=== PATIENT | male | born 1960 | race Caucasian/White ===

== ENCOUNTER 2016-12-02 15:44 | Emergency (ER) | payer OTHER ==
[2016-12-02] MEDS ORDERED: Nitroglycerin 2% Oint 1 GM UD Packet TOP ONE (15:51)
[2016-12-02] MEDS ORDERED: Ketorolac 30 MG/ML SDV IVPUSH ONE (15:51)
[2016-12-02] MEDS ORDERED: Alum Hydrox/Mag Hydrox/Simeth 15 ML, Metoclopramide 5 MG, Lidocaine 2% 5 ML PO ONE ×3 (15:51)
[2016-12-02] MEDS ORDERED: Famotidine 20 MG/2 ML SDV IVPUSH ONE (15:51)
[2016-12-02] MEDS ORDERED: Aspirin 81 MG Tab.Chew PO ONE (15:51)
--- NOTE | 2016-12-02 15:53 | EDM.PDOC ---
ED HPI GENERAL MEDICAL PROBLEM - General Stated Complaint: CHEST PAIN Time Seen by Provider: 12/02/16 15:45 Source of Information: Reports: Patient History Limitations: Reports: No Limitations - History of Present Illness INITIAL COMMENTS - FREE TEXT/NARRATIVE: History of present illness: [56-year-old male presenting with left-sided chest pain. Patient does have a history of a [place] as well as stents 2] Review of systems: As per history of present illness and below otherwise all systems reviewed and negative. Past medical history: As per history of present illness and as reviewed below otherwise noncontributory. Surgical history: As per history of present illness and as reviewed below otherwise noncontributory. Social history: No reported history of drug or alcohol abuse. Family history: As per history of present illness and as reviewed below otherwise noncontributory. Physical exam: HEENT: Atraumatic, normocephalic, pupils reactive, negative for conjunctival pallor or scleral icterus, mucous membranes moist, throat clear, neck supple, nontender, trachea midline. Lungs: Clear to auscultation, breath sounds equal bilaterally, chest nontender. Heart: S1S2, regular, negative for clicks, rubs, or JVD. Abdomen: Soft, nondistended, nontender. Negative for masses or hepatosplenomegaly. Negative for costovertebral tenderness. Pelvis: Stable nontender. Genitourinary: Deferred. Rectal: Deferred. Extremities: Atraumatic, negative for cords or calf pain. Neurovascular unremarkable. Neuro: Awake, alert, oriented. Cranial nerves II through XII unremarkable. Cerebellum unremarkable. Motor and sensory unremarkable throughout. Exam nonfocal. Global assessment is benign inclusive of negative labs discussed results with patient and history and patient declined inpatient admission either for observation or full admit. He was aware of what to look for would return if he had any concerns. Diagnostics: [CBC, CMP, troponin, amylase, lipase, chest x-ray] Therapeutics: [Aspirin, Toradol, GI cocktail IV saline lock] Impression: [#1 atypical chest pain] Plan: [Discharged home per patient's request] Definitive disposition and diagnosis as appropriate pending reevaluation and review of above. Left Chest Pain Score (Numeric/FACES): 1 - Related Data Allergies Allergy/AdvReac Type Severity Reaction Status Date / Time No Known Allergies Allergy Verified 12/02/16 15:46 Home Meds: Home Meds Clopidogrel [Plavix] 75 mg PO DAILY 12/02/16 [History] Nitroglycerin 0.4 mg PO PRN 12/02/16 [History] atorvaSTATin Calcium [Atorvastatin Calcium] 80 mg PO DAILY 12/02/16 [History] ED ROS GENERAL - Review of Systems Review Of Systems: See Below (See history of present illness) ED EXAM, GENERAL - Physical Exam Exam: See Below (See history of present illness) Course - Vital Signs Last Recorded V/S: Last Vital Signs Temp 36.6 C 12/02/16 15:48 Pulse 61 12/02/16 15:48 Resp 16 12/02/16 15:48 BP 129/95 H 12/02/16 15:48 Pulse Ox 97 12/02/16 15:48 - Orders/Labs/Meds Orders: Active Orders 24 hr Category Date Time Status EKG Documentation Completion [RC] STAT Care 12/02/16 15:51 Active Chest 2V [CR] Stat Exams 12/02/16 15:51 Taken Saline Lock Insert [OM.PC] Stat Oth 12/02/16 15:51 Ordered Labs: Laboratory Tests 12/02/16 12/02/16 12/02/16 Range/Units 15:59 15:59 16:34 WBC 6.28 (4.0-11.0) K/uL RBC 4.32 L (4.50-5.90) M/uL Hgb 14.3 (13.0-17.0) g/dL Hct 42.4 (38.0-50.0) % MCV 98.1 H (80.0-98.0) fL MCH 33.1 H (27.0-32.0) pg MCHC 33.7 (31.0-37.0) g/dL RDW Std Deviation 47.0 (28.0-62.0) fl RDW Coeff of Kacy 13 (11.0-15.0) % Plt Count 238 (150-400) K/uL MPV 10.20 (7.40-12.00) fL Neut % (Auto) 60.5 (48.0-80.0) % Lymph % (Auto) 26.6 (16.0-40.0) % [place] % (Auto) 10.0 (0.0-15.0) % Eos % (Auto) 2.4 (0.0-7.0) % Baso % (Auto) 0.5 (0.0-1.5) % Neut # (Auto) 3.8 (1.4-5.7) K/uL Lymph # (Auto) 1.7 (0.6-2.4) K/uL [place] # (Auto) 0.6 (0.0-0.8) K/uL Eos # (Auto) 0.2 (0.0-0.7) K/uL Baso # (Auto) 0.0 (0.0-0.1) K/uL Nucleated RBC % 0.0 /100WBC Nucleated RBCs # 0 K/uL Sodium 140 (136-146) mmol/L Potassium 4.0 (3.5-5.1) mmol/L Chloride 111 H (98-110) mmol/L Carbon Dioxide 22 (21-31) mmol/L BUN 25 H (6.0-23.0) mg/dL Creatinine 0.8 (0.6-1.5) mg/dL Est Cr Clr Drug Dosing 93.04 mL/min Estimated GFR (MDRD) > 60.0 ml/min Glucose 113 H (60-110) mg/dL Calcium 9.0 (8.8-10.8) mg/dL Total Bilirubin 0.4 (0.1-1.5) mg/dL AST 35 (5-40) IU/L ALT 51 (8-54) IU/L Alkaline Phosphatase 76 (40-150) Troponin I < 0.10 (0.0-0.29) NG/ML B-Natriuretic Peptide 54 (<100) PG/ML Total Protein 6.7 (6.0-8.0) g/dL Albumin 3.7 (3.5-5.0) g/dL Globulin 3.0 (2.0-3.5) g/dL Albumin/Globulin Ratio 1.2 L (1.3-2.8) Amylase 60 (10-90) U/L Lipase 11 (7-80) U/L Urine Color Urine Appearance Urine pH (5.0-8.0) Ur Specific [place] (1.001-1.035) Urine Protein (NEGATIVE) mg/dL Urine Glucose (UA) (NEGATIVE) mg/dL Urine Ketones (NEGATIVE) mg/dL Urine Occult Blood (NEGATIVE) Urine Nitrite (NEGATIVE) Urine Bilirubin (NEGATIVE) Urine Urobilinogen (<2.0) EU/dL Ur Leukocyte Esterase (NEGATIVE) Urine RBC (0-2/HPF) Urine WBC (0-5/HPF) Ur Epithelial Cells (NONE-FEW) 12/02/16 Range/Units 16:41 WBC (4.0-11.0) K/uL RBC (4.50-5.90) M/uL Hgb (13.0-17.0) g/dL Hct (38.0-50.0) % MCV (80.0-98.0) fL MCH (27.0-32.0) pg MCHC (31.0-37.0) g/dL RDW Std Deviation (28.0-62.0) fl RDW Coeff of Kacy (11.0-15.0) % Plt Count (150-400) K/uL MPV (7.40-12.00) fL Neut % (Auto) (48.0-80.0) % Lymph % (Auto) (16.0-40.0) % [place] % (Auto) (0.0-15.0) % Eos % (Auto) (0.0-7.0) % Baso % (Auto) (0.0-1.5) % Neut # (Auto) (1.4-5.7) K/uL Lymph # (Auto) (0.6-2.4) K/uL [place] # (Auto) (0.0-0.8) K/uL Eos # (Auto) (0.0-0.7) K/uL Baso # (Auto) (0.0-0.1) K/uL Nucleated RBC % /100WBC Nucleated RBCs # K/uL Sodium (136-146) mmol/L Potassium (3.5-5.1) mmol/L Chloride (98-110) mmol/L Carbon Dioxide (21-31) mmol/L BUN (6.0-23.0) mg/dL Creatinine (0.6-1.5) mg/dL Est Cr Clr Drug Dosing mL/min Estimated GFR (MDRD) ml/min Glucose (60-110) mg/dL Calcium (8.8-10.8) mg/dL Total Bilirubin (0.1-1.5) mg/dL AST (5-40) IU/L ALT (8-54) IU/L Alkaline Phosphatase (40-150) Troponin I (0.0-0.29) NG/ML B-Natriuretic Peptide (<100) PG/ML Total Protein (6.0-8.0) g/dL Albumin (3.5-5.0) g/dL Globulin (2.0-3.5) g/dL Albumin/Globulin Ratio (1.3-2.8) Amylase (10-90) U/L Lipase (7-80) U/L Urine Color YELLOW Urine Appearance CLEAR Urine pH 6.0 (5.0-8.0) Ur Specific [place] 1.020 (1.001-1.035) Urine Protein NEGATIVE (NEGATIVE) mg/dL Urine Glucose (UA) NEGATIVE (NEGATIVE) mg/dL Urine Ketones TRACE H (NEGATIVE) mg/dL Urine Occult Blood NEGATIVE (NEGATIVE) Urine Nitrite NEGATIVE (NEGATIVE) Urine Bilirubin NEGATIVE (NEGATIVE) Urine Urobilinogen 0.2 (<2.0) EU/dL Ur Leukocyte Esterase NEGATIVE (NEGATIVE) Urine RBC 0-1 (0-2/HPF) Urine WBC 0-1 (0-5/HPF) Ur Epithelial Cells MODERATE (NONE-FEW) Meds: Medications Discontinued Medications Generic Name Dose Route Start Last Admin Trade Name Harley PRN Reason Stop Dose Admin Aspirin 324 mg 12/02/16 15:51 12/02/16 16:10 Aspirin PO 12/02/16 15:52 324 mg ONETIME ONE Administration Al Hydroxide/Mg Hydroxide 15 0 ml 12/02/16 15:51 12/02/16 16:10 ml/ Metoclopramide HCl 5 mg/ PO 12/02/16 15:52 25 each Lidocaine HCl 5 ml ONETIME ONE Administration Famotidine 20 mg 12/02/16 15:51 12/02/16 16:12 Pepcid IVPUSH 12/02/16 15:52 20 mg ONETIME ONE Administration Ketorolac Tromethamine 30 mg 12/02/16 15:51 12/02/16 16:12 Toradol IVPUSH 12/02/16 15:52 30 mg ONETIME ONE Administration Nitroglycerin 1 gm 12/02/16 15:51 12/02/16 16:12 Nitro-Bid 2% TOP 12/02/16 15:52 1 gm ONETIME ONE Administration Departure - Departure Time of Disposition: 17:20 Disposition: Home, Self-Care 01 Condition: Good Clinical Impression: Atypical chest pain - Discharge Information Instructions: Nonspecific Chest Pain, [id number] Additional Instructions: The following information is given to patients seen in the emergency department who are being discharged to home. This information is to outline your options for follow-up care. We provide all patients seen in our emergency department with a follow-up referral. The need for follow-up, as well as the timing and circumstances, are variable depending upon the specifics of your emergency department visit. If you don't have a primary care physician on staff, we will provide you with a referral. We always advise you to contact your personal physician following an emergency department visit to inform them of the circumstance of the visit and for follow-up with them and/or the need for any referrals to a consulting specialist. The emergency department will also refer you to a specialist when appropriate. This referral assures that you have the opportunity for follow-up care with a specialist. All of these measure are taken in an effort to provide you with optimal care, which includes your follow-up. Under all circumstances we always encourage you to contact your private physician who remains a resource for coordinating your care. When calling for follow-up care, please make the office aware that this follow-up is from your recent emergency room visit. If for any reason you are refused follow-up, please contact the [facility] Emergency Department at and asked to speak to the emergency department charge nurse. Follow-up with PCP 1-2 days Return to ED as needed as discussed - My Orders Last 24 Hours: My Active Orders 12/02/16 15:51 EKG Documentation Completion [RC] STAT Chest 2V [CR] Stat Saline Lock Insert [OM.PC] Stat - Assessment/Plan Last 24 Hours: My Active Orders 12/02/16 15:51 EKG Documentation Completion [RC] STAT Chest 2V [CR] Stat Saline Lock Insert [OM.PC] Stat
[2016-12-02 17:02] LABS: CHLORIDE,CL 111 mmol/L (98-110); SODIUM,NA 140 mmol/L (136-146)
--- NOTE | 2016-12-04 13:47 | CR ---
EXAM DATE: 12/02/16 PATIENT'S AGE: 56 Patient: CHIQUIS LAMAR Facility: [place], [place] Site . Site : [id number] Study: XRay Chest [id number]/28/2017 5:04:32 PM Ordering Physician: Doctor Meyer Final Report: HISTORY: Chest pain. Findings: Two views of the chest or provided. The lungs are clear and there is no evidence for pleural effusion or pneumothorax. Cardiac silhouette size is within normal limits. Dictated by Casey Hillman MD @ Dec 02 2016 5:08PM (Electronic Signature) Report Signed by Proxy. KAYLI
== END 2016-12-02 17:51 | disposition home or self-care (01) ==
LOC: MW.ED 15:44
DX: R07.89 Other chest pain (principal); I25.2 Old myocardial infarction; Z95.5 Presence of coronary angioplasty implant and graft; Z79.899 Other long term (current) drug therapy
CPT/HCPCS: 36415; 71020; 80053; 81001; 82150; 83690; 83880; 84484; 85025; 93005; 96374; 96375; 99285; A9270; J1885; 99283

== ENCOUNTER 2017-03-03 17:13 | Observation (INO) | payer OTHER ==
[2017-03-03] MEDS ORDERED: Nitroglycerin 0.4 MG Tab.SL SL ONE (17:16)
[2017-03-03] MEDS ORDERED: Sodium Chloride 0.9% 1,000 ML IV ONE (17:16)
[2017-03-03] MEDS ORDERED: Aspirin 81 MG Tab.Chew PO ONE (17:16)
--- NOTE | 2017-03-03 17:22 | EDM.PDOC ---
ED HPI GENERAL MEDICAL PROBLEM - General Chief Complaint: Chest Pain Stated Complaint: chest pain Time Seen by Provider: 03/03/17 17:16 Source of Information: Reports: Patient History Limitations: Reports: No Limitations - History of Present Illness INITIAL COMMENTS - FREE TEXT/NARRATIVE: HISTORY AND PHYSICAL: History of present illness: Patient is a 57-year-old male who presents to the emergency room today with complaints of midsternal chest pain that radiates into the left chest wall for approximately 1 hour prior to arrival. He states this pain is associated with feeling flushed and nausea. Although he states "I haven't felt well all day". Does have a history of [place] with stent placement 2. 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 Within the last month he has stopped taking his prescribed "blood thinner". When chest pain started today he did take 1 tablet of his nitroglycerin. He states that the nitroglycerin worsened pain. Proceeded to come to the emergency room. Denies any shortness of breath, cough, abdominal pain, vomiting, diarrhea , fever or chills. Review of systems: As per history of present illness and below otherwise all systems reviewed and negative. Past medical history: As per history of present illness and as reviewed below otherwise noncontributory. Surgical history: As per history of present illness and as reviewed below otherwise noncontributory. Social history: No reported history of drug or alcohol abuse. Family history: As per history of present illness and as reviewed below otherwise noncontributory. Physical exam: Gen.: Well-developed and well-nourished 57-year-old male. Alert and oriented. Nontoxic appearing and in no acute distress HEENT: Atraumatic, normocephalic, pupils reactive, negative for conjunctival pallor or scleral icterus, mucous membranes moist, throat clear, neck supple, nontender, trachea midline. Lungs: Clear to auscultation, breath sounds equal bilaterally, chest nontender. Heart: S1S2, regular rate and rhythm Abdomen: Soft, nondistended, nontender. Negative for masses or hepatosplenomegaly. Negative for costovertebral tenderness. Pelvis: Stable nontender. Genitourinary: Deferred. Rectal: Deferred. Extremities: Atraumatic, negative for cords or calf pain. Neurovascular unremarkable. Neuro: Awake, alert, oriented. Cranial nerves II through XII unremarkable. Cerebellum unremarkable. Motor and sensory unremarkable throughout. Exam nonfocal. Skin: Skin is flushed into chest up into neck. Otherwise intact, warm, dry. No rashes. Lab, EKG and chest x-ray are within normal limits. The patient is currently pain -free after 3 tablets of nitroglycerin. Vital signs have been reviewed by me and are within normal limits. Dr. Schultz with consult and has agreed to keep this patient for observation on telemetry. Patient is agreeable to staying overnight. Diagnostics: CBC, CMP, troponin, EKG, 1 view chest x-ray Therapeutics: Aspirin, nitroglycerin, saline mom Impression: #1 chest pain Plan: Observation admission to [facility] with telemetry Definitive disposition and diagnosis as appropriate pending reevaluation and review of above. Onset: Today Duration: Hour(s): Location: Reports: Chest Associated Symptoms: Reports: Chest Pain, Nausea/Vomiting. Denies: Confusion, Cough, cough w sputum, Diaphoresis, Fever/Chills, Headaches, Loss of Appetite, Malaise, Rash, Seizure, Shortness of Breath, Syncope, Weakness Treatments NEWS LIBRARIAN: Reports: Nitroglycerin (1 tab NEWS LIBRARIAN; "worsened pain") chest Pain Score (Numeric/FACES): 4 - Related Data Allergies Allergy/AdvReac Type Severity Reaction Status Date / Time No Known Allergies Allergy Verified 03/03/17 17:22 Home Meds: Home Meds . [No Known Home Meds] 03/03/17 [History] Past Medical History HEENT History: Reports: None Cardiovascular History: Reports: [place], Stents Respiratory History: Reports: None Gastrointestinal History: Reports: None Genitourinary History: Reports: Renal Calculus Musculoskeletal History: Reports: None Neurological History: Reports: None Psychiatric History: Reports: None Endocrine/Metabolic History: Reports: None Hematologic History: Reports: None Immunologic History: Reports: None Dermatologic History: Reports: None - Infectious Disease History Infectious Disease History: Reports: Hepatitis C - Past Surgical History Head Surgeries/Procedures: Reports: None HEENT Surgical History: Reports: None Cardiovascular Surgical History: Reports: None Respiratory Surgical History: Reports: None GI Surgical History: Reports: None Male Surgical History: Reports: None Endocrine Surgical History: Reports: None Neurological Surgical History: Reports: None Musculoskeletal Surgical History: Reports: None Dermatological Surgical History: Reports: None Social & Family History - Family History Family Medical History: Unobtainable Cardiac: Reports: [place] - Tobacco Use Smoking Status *Q: Never Smoker - Caffeine Use Caffeine Use: Reports: Coffee, Energy Drinks - Recreational Drug Use Recreational Drug Use: Yes Recreational Drug Type: Reports: Marijuana/Hashish Recreational Drug Use Frequency: Weekly ED ROS GENERAL - Review of Systems Review Of Systems: ROS reveals no pertinent complaints other than HPI. ED EXAM, GENERAL - Physical Exam Exam: See Below (See dictation) EKG INTERPRETATION EKG Date: 03/03/17 Time: 17:13 Rate (Beats/Min): 74 QRS: RBBB Comparison: Other: (NO significant changes from previous EKG 12/02/2016) Course - Vital Signs Last Recorded V/S: Last Vital Signs Temp 97.3 F 03/04/17 12:00 Pulse 53 L 03/04/17 12:00 Resp 18 03/04/17 12:00 BP 146/80 H 03/04/17 12:00 Pulse Ox 96 03/04/17 12:00 - Orders/Labs/Meds Labs: Laboratory Tests 03/03/17 03/03/17 Range/Units 17:27 17:27 WBC 4.96 (4.0-11.0) K/uL RBC 4.06 L (4.50-5.90) M/uL Hgb 13.2 (13.0-17.0) g/dL Hct 38.2 (38.0-50.0) % MCV 94.1 (80.0-98.0) fL MCH 32.5 H (27.0-32.0) pg MCHC 34.6 (31.0-37.0) g/dL RDW Std Deviation 43.3 (28.0-62.0) fl RDW Coeff of Kacy 13 (11.0-15.0) % Plt Count 237 (150-400) K/uL MPV 9.50 (7.40-12.00) fL Neut % (Auto) 70.4 (48.0-80.0) % Lymph % (Auto) 22.8 (16.0-40.0) % [place] % (Auto) 5.8 (0.0-15.0) % Eos % (Auto) 0.4 (0.0-7.0) % Baso % (Auto) 0.6 (0.0-1.5) % Neut # (Auto) 3.5 (1.4-5.7) K/uL Lymph # (Auto) 1.1 (0.6-2.4) K/uL [place] # (Auto) 0.3 (0.0-0.8) K/uL Eos # (Auto) 0.0 (0.0-0.7) K/uL Baso # (Auto) 0.0 (0.0-0.1) K/uL Nucleated RBC % 0.0 /100WBC Nucleated RBCs # 0 K/uL Sodium 138 (136-146) mmol/L Potassium 3.7 (3.5-5.1) mmol/L Chloride 106 (98-110) mmol/L Carbon Dioxide 21 (21-31) mmol/L BUN 22 (6.0-23.0) mg/dL Creatinine 0.8 (0.6-1.5) mg/dL Est Cr Clr Drug Dosing 95.25 mL/min Estimated GFR (MDRD) > 60.0 ml/min Glucose 115 H (60-110) mg/dL Calcium 9.4 (8.8-10.8) mg/dL Total Bilirubin 0.8 (0.1-1.5) mg/dL AST 53 H (5-40) IU/L ALT 49 (8-54) IU/L Alkaline Phosphatase 68 (40-150) Troponin I < 0.10 (0.0-0.29) NG/ML Total Protein 7.2 (6.0-8.0) g/dL Albumin 4.5 (3.5-5.0) g/dL Globulin 2.7 (2.0-3.5) g/dL Albumin/Globulin Ratio 1.7 (1.3-2.8) Meds: Medications Discontinued Medications Generic Name Dose Route Start Last Admin Trade Name Freq PRN Reason Stop Dose Admin Acetaminophen 650 mg 03/03/17 19:06 Tylenol PO Q4H PRN Pain (Mild 1-3)/fever Aspirin 324 mg 03/03/17 17:16 03/03/17 17:37 Aspirin PO 03/03/17 17:17 324 mg ONETIME ONE Administration Enoxaparin Sodium 40 mg 03/03/17 19:15 03/04/17 11:19 Lovenox SUBCUT Not Given DAILY FELICIA Sodium Chloride 1,000 mls @ 999 mls/hr 03/03/17 17:16 03/03/17 17:39 Normal Saline IV 03/03/17 18:16 999 mls/hr .Bolus ONE Administration Morphine Sulfate 2 mg 03/03/17 19:06 Morphine IVPUSH 03/04/17 19:08 Q2H PRN Pain (severe 7-10) Nitroglycerin 0.4 mg 03/03/17 17:16 03/03/17 17:41 Nitrostat SL 03/03/17 17:17 0.4 mg ONETIME ONE Administration Nitroglycerin 0.4 mg 03/03/17 17:42 03/03/17 17:51 Nitrostat SL 0.4 mg Q5M PRN Administration Chest Pain Ondansetron HCl 4 mg 03/03/17 17:34 03/03/17 17:39 Zofran IVPUSH 03/03/17 17:35 4 mg ONETIME ONE Administration Ondansetron HCl 4 mg 03/03/17 19:06 Zofran Odt PO Q4H PRN nausea, able to take PO Ondansetron HCl 4 mg 03/03/17 19:06 Zofran IVPUSH Q4H PRN Nausea Temazepam 15 mg 03/03/17 19:06 Restoril PO BEDTIME PRN Sleep Departure - Departure Time of Disposition: 18:09 Disposition: Refer to Observation Clinical Impression: Chest pain, rule out acute myocardial infarction
[2017-03-03] MEDS ORDERED: Ondansetron 4 MG/2 ML SDV IVPUSH ONE (17:34)
[2017-03-03] MEDS: Nitroglycerin 0.4 MG Tab.SL SL PRN ×2 (17:47→17:51)
[2017-03-03 17:56] LABS: CHLORIDE,CL 106 mmol/L (98-110); SODIUM,NA 138 mmol/L (136-146)
--- NOTE | 2017-03-03 18:10 | PCM.HP ---
H&P History of Present Illness - General Date of Service: 03/03/17 Admit Problem/Dx: Chest Pain Source of Information: Patient History Limitations: Reports: No Limitations - History of Present Illness Initial Comments - Free Text/Narative: 57-year-old male who presented to the emergency room with a chief complaint of chest pain 1 hour with past medical history of ID with stents 2 1 year ago, hypertension, hyperlipidemia, and hep C. 57-year-old male who presented in the emergency room for chief complaint of midsternal chest pain with radiation to the left chest wall for approximately 1 hour. He describes the pain as "tightness". States that the pain initially started around 1500 one hour before presenting to ED. He had associated nausea and flushing but denies any shortness of breath or diaphoresis. He did take 1 nitroglycerin which did not seem to help so came into the emergency department for further evaluation. Pain continued until he was given nitroglycerin in the emergency room. States that he had a similar episode in November but the "chest tightness" was not as severe. States that he was feeling his normal self before this event and denies any fever, chills, cough, diarrhea, abdominal pain, or palpitations. Patient did have an ID approximately one year ago with stents 2 in [place]. He reports that he did recently stop his blood thinner approximately 1 month ago as well as his cholesterol medication. States that he was told that he could quit the medication after one year. He has not seen a machine heel builder since. Does report a history of a heart murmur since he was young. Denies any orthopnea, paroxysmal nocturnal dyspnea, or shortness breath with walking. Patient also has a history of hepatitis C she states he found out when he had his ID last year. He has not seek to receive any treatment. Emergency department: CBC, CMP, and chest x-ray were unremarkable. ECG showed no acute signs of ischemia. Troponin was negative at 1727. Vital signs were stable and within normal limits. He was given 0.4 of nitroglycerin, Zofran 4 mg, and ASA 324 mg. Patient was admitted for chest pain rule out ACS. chest Pain Score (Numeric/FACES): 4 - Related Data Allergies/Adverse Reactions: Allergies Allergy/AdvReac Type Severity Reaction Status Date / Time No Known Allergies Allergy Verified 01/27/18 17:22 Home Medications: Home Meds . [No Known Home Meds] 03/03/17 [History] Past Medical History HEENT History: Reports: None Cardiovascular History: Reports: ID, Stents Other Cardiovascular History: Bradycardia Respiratory History: Reports: None Gastrointestinal History: Reports: None Genitourinary History: Reports: Renal Calculus Musculoskeletal History: Reports: None Neurological History: Reports: None Psychiatric History: Reports: None Endocrine/Metabolic History: Reports: None Hematologic History: Reports: None Immunologic History: Reports: None Dermatologic History: Reports: None - Infectious Disease History Infectious Disease History: Reports: Hepatitis C - Past Surgical History Head Surgeries/Procedures: Reports: None HEENT Surgical History: Reports: None Cardiovascular Surgical History: Reports: None Respiratory Surgical History: Reports: None GI Surgical History: Reports: None Male Surgical History: Reports: None Endocrine Surgical History: Reports: None Neurological Surgical History: Reports: None Musculoskeletal Surgical History: Reports: None Dermatological Surgical History: Reports: None Social & Family History - Family History Family Medical History: Unobtainable Cardiac: Reports: ID - Tobacco Use Smoking Status *Q: Never Smoker - Caffeine Use Caffeine Use: Reports: Coffee, Energy Drinks - Alcohol Use Days Per Week of Alcohol Use: 2 Number of Drinks Per Day: 10 Total Drinks Per Week: 20 - Recreational Drug Use Recreational Drug Use: Yes Recreational Drug Type: Reports: Marijuana/Hashish Recreational Drug Use Frequency: Weekly H&P Review of Systems - Review of Systems: Review Of Systems: See Below General: Denies: Fever, Chills, Malaise, Weakness, Fatigue, Diaphoresis HEENT: Denies: Headaches, Sinus Congestion, Sore Throat Pulmonary: Denies: Shortness of Breath, Wheezing, Cough, Sputum Cardiovascular: Reports: Chest Pain. Denies: Palpitations, Edema Gastrointestinal: Reports: Nausea. Denies: Abdominal Pain, Black Stool, Bloody Stool, Vomiting Genitourinary: Denies: Dysuria, Hematuria Musculoskeletal: Denies: Neck Pain, Leg Pain Skin: Denies: Cyanosis Psychiatric: Denies: Confusion Neurological: Denies: Confusion, Dizziness, Headache Hematologic/Lymphatic: Denies: Anemia Exam - Exam Exam: See Below - Vital Signs Vital Signs: Last Vital Signs Temp 98.2 F 03/03/17 17:15 Pulse 66 03/03/17 17:52 Resp 18 03/03/17 17:52 BP 114/62 03/03/17 17:52 Pulse Ox 97 03/03/17 17:52 Weight: 75.3 kg - Exam Quality Assessment: DVT Prophylaxis General: Alert, Oriented, Cooperative HEENT: Conjunctiva Clear, EACs Clear, EOMI, Hearing Intact, Mucosa Moist & [place] , Nares Patent, Normal Nasal Septum, PERRLA Neck: Supple, Trachea Midline, 2 Lungs: Clear to Auscultation, Normal Respiratory Effort Cardiovascular: Regular Rate, Regular Rhythm, Normal S1, Normal S2, Systolic Murmur (Grade 3 holosystolic) GI/Abdominal Exam: Normal Bowel Sounds, Soft, Non-Tender, No Organomegaly, No Distention (Male) Exam: Deferred Rectal (Males) Exam: Deferred Back Exam: Normal Inspection Extremities: Normal Inspection, Normal Range of Motion, Non-Tender, No Pedal Edema, Normal Capillary Refill Peripheral Pulses: 2+: Radial (L), Radial (R), Posterior Tibial (L), Posterior Tibial (R), Dorsalis Pedis (L), Dorsalis Pedis (R) Skin: Warm, Dry, Intact Neurological: Cranial Nerves Intact Neuro Extensive - Mental Status: Alert, Oriented x3, Normal Mood/Affect, Normal Cognition Neuro Extensive - Motor, Sensory, Reflexes: CN II-XII Intact Psychiatric: Alert, Normal Affect, Normal Mood - Patient Data Lab Results Last 24 hrs: Laboratory Results - last 24 hr 03/03/17 03/03/17 Range/Units 17:27 17:27 WBC 4.96 (4.0-11.0) K/uL RBC 4.06 L (4.50-5.90) M/uL Hgb 13.2 (13.0-17.0) g/dL Hct 38.2 (38.0-50.0) % MCV 94.1 (80.0-98.0) fL MCH 32.5 H (27.0-32.0) pg MCHC 34.6 (31.0-37.0) g/dL RDW Std Deviation 43.3 (28.0-62.0) fl RDW Coeff of Kacy 13 (11.0-15.0) % Plt Count 237 (150-400) K/uL MPV 9.50 (7.40-12.00) fL Neut % (Auto) 70.4 (48.0-80.0) % Lymph % (Auto) 22.8 (16.0-40.0) % [place] % (Auto) 5.8 (0.0-15.0) % Eos % (Auto) 0.4 (0.0-7.0) % Baso % (Auto) 0.6 (0.0-1.5) % Neut # (Auto) 3.5 (1.4-5.7) K/uL Lymph # (Auto) 1.1 (0.6-2.4) K/uL [place] # (Auto) 0.3 (0.0-0.8) K/uL Eos # (Auto) 0.0 (0.0-0.7) K/uL Baso # (Auto) 0.0 (0.0-0.1) K/uL Nucleated RBC % 0.0 /100WBC Nucleated RBCs # 0 K/uL Sodium 138 (136-146) mmol/L Potassium 3.7 (3.5-5.1) mmol/L Chloride 106 (98-110) mmol/L Carbon Dioxide 21 (21-31) mmol/L BUN 22 (6.0-23.0) mg/dL Creatinine 0.8 (0.6-1.5) mg/dL Est Cr Clr Drug Dosing 95.25 mL/min Estimated GFR (MDRD) > 60.0 ml/min Glucose 115 H (60-110) mg/dL Calcium 9.4 (8.8-10.8) mg/dL Total Bilirubin 0.8 (0.1-1.5) mg/dL AST 53 H (5-40) IU/L ALT 49 (8-54) IU/L Alkaline Phosphatase 68 (40-150) Troponin I < 0.10 (0.0-0.29) NG/ML Total Protein 7.2 (6.0-8.0) g/dL Albumin 4.5 (3.5-5.0) g/dL Globulin 2.7 (2.0-3.5) g/dL Albumin/Globulin Ratio 1.7 (1.3-2.8) Result Diagrams: 03/03/17 17:27 03/03/17 17:27 *Q Meaningful Use (ADM) - VTE *Q VTE Criteria *Q: - Stroke *Q Stroke Criteria *Q: - AMI *Q AMI Criteria *Q: - Problem List (1) Chest pain, rule out acute myocardial infarction SNOMED Code(s): 68470193 ICD Code: R07.9 - CHEST PAIN, UNSPECIFIED Status: Acute Priority: High Current Visit: Yes (2) Myocardial infarct, old SNOMED Code(s): 9762616 ICD Code: I25.2 - OLD MYOCARDIAL INFARCTION Status: Chronic Priority: High Current Visit: Yes (3) Presence of stent in coronary artery in patient with coronary artery disease SNOMED Code(s): 949038540 ICD Code: I25.10 - ATHSCL HEART DISEASE OF [place] CORONARY ARTERY W/O ANG PCTRS; Z95.5 - PRESENCE OF CORONARY ANGIOPLASTY IMPLANT AND GRAFT Status: Chronic Priority: High Current Visit: Yes (4) Hypertension SNOMED Code(s): 36871704 ICD Code: I10 - ESSENTIAL (PRIMARY) HYPERTENSION Status: Chronic Priority : Medium Current Visit: Yes Qualifiers: Hypertension type: unspecified Qualified Code(s): I10 - Essential (primary ) hypertension (5) Hyperlipidemia SNOMED Code(s): 20616465 ICD Code: E78.5 - HYPERLIPIDEMIA, UNSPECIFIED Status: Chronic Priority: Medium Current Visit: Yes Qualifiers: Hyperlipidemia type: unspecified Qualified Code(s): E78.5 - Hyperlipidemia , unspecified Problem List Initiated/Reviewed/Updated: Yes Orders Last 24hrs: Active Orders 24 hr Category Date Time Status Cardiac Monitoring [RC] . DIRECTED Care 03/03/17 17:16 Active EKG Documentation Completion [RC] STAT Care 03/03/17 17:17 Active Oxygen Therapy [RC] ASDIRECTED Care 03/03/17 17:16 Active Chest 1V Frontal [CR] Stat Exams 03/03/17 17:16 Taken Sodium Chloride 0.9% [Normal Saline] 1,000 ml Med 03/03/17 17:16 Active IV .Bolus Medication Orders Sodium Chloride (Normal Saline) 1,000 mls @ 999 mls/hr IV .Bolus ONE Stop: 03/03/17 18:16 Last Admin: 03/03/17 17:39 Dose: 999 mls/hr Assessment/Plan Comment:: 57-year-old male admitted 03/03/17 for chest pain with past medical history of ID , CAD with stents 2, hypertension, and hyperlipidemia. Chest pain: Initial troponin ECG showed no signs of acute ischemia. Will trend troponins every 6 hours. Patient on telemetry. Given patient's history and lack of follow-up as well as not taking any medications he most likely would benefit from a cardiology follow-up as well as a primary care physician establishment. Patient does has a grade 3 holosystolic murmur and with his cardiac history we' ll get a echocardiogram to assess his current current heart function. Patient did stop his blood thinner 1 month ago on his own. Hypertension: Currently normotensive without medications will monitor and start medications as appropriate. Hyperlipidemia: Patient did stop his medications abruptly one month ago. We will get a lipid panel to assess overall cardiac risk. VTE proph: Lovenox, SCD Dispo: 1-2 days.
[2017-03-03] MEDS ORDERED: Temazepam 15 MG Cap PO PRN (19:06)
[2017-03-03] MEDS ORDERED: Ondansetron 4 MG Tab.DIS PO PRN (19:06)
[2017-03-03] MEDS ORDERED: Acetaminophen 325 MG Tab PO PRN (19:06)
[2017-03-03] MEDS ORDERED: Morphine 10 MG/ML Syringe IVPUSH PRN (19:06)
[2017-03-03] MEDS ORDERED: Ondansetron 4 MG/2 ML SDV IVPUSH PRN (19:06)
[2017-03-03] MEDS: Enoxaparin 40 MG/0.4 ML Syringe SUBCUT SCH (20:06)
[2017-03-04 06:41] LABS: CHLORIDE,CL 113 mmol/L (98-110); SODIUM,NA 141 mmol/L (136-146)
[2017-03-04] MEDS: Enoxaparin 40 MG/0.4 ML Syringe SUBCUT SCH (11:19)
--- NOTE | 2017-03-04 15:01 | PCM.DCSUM1 ---
Discharge Summary - Discharge Data Discharge Date: 03/04/17 Discharge Disposition: Home, Self-Care 01 Condition: Good - Patient Summary/Data Hospital Course: 57-year-old male who presented to the emergency room with a chief complaint of chest pain 1 hour with past medical history of IA with stents 2 1 year ago, hypertension, hyperlipidemia, and hep C. He was monitored overnigh on telemetry with no events and no reoccurrence of chest pain. He ruled out for acute coronary syndrome with EKG and serial negative cardiac enzymes. He was discharged home to have follow up with [facility]. He was referred to outpatient cardiac stress testing. - Patient Instructions Diet: Heart Healthy Diet - Discharge Plan Home Medications: Home Meds . [No Known Home Meds] 03/03/17 [History] Patient Handouts: Nonspecific Chest Pain, [id number] - Patient Data Vitals - Most Recent: Last Vital Signs Temp 36.3 C 03/04/17 12:00 Pulse 53 L 03/04/17 12:00 Resp 18 03/04/17 12:00 BP 146/80 H 03/04/17 12:00 Pulse Ox 96 03/04/17 12:00 Weight - Most Recent: 75.3 kg I&O - Last 24 hours: Intake & Output 03/03/17 03/04/17 03/04/17 22:59 06:59 14:59 Intake Total 300 Output Total 250 Balance 50 Lab Results - Last 24 hrs: Laboratory Results - last 24 hr 03/03/17 03/04/17 03/04/17 Range/Units 23:35 05:54 05:54 WBC 4.22 (4.0-11.0) K/uL RBC 3.82 L (4.50-5.90) M/uL Hgb 12.5 L (13.0-17.0) g/dL Hct 36.8 L (38.0-50.0) % MCV 96.3 (80.0-98.0) fL MCH 32.7 H (27.0-32.0) pg MCHC 34.0 (31.0-37.0) g/dL RDW Std Deviation 45.0 (28.0-62.0) fl RDW Coeff of Kacy 13 (11.0-15.0) % Plt Count 203 (150-400) K/uL MPV 9.60 (7.40-12.00) fL Neut % (Auto) 45.9 L (48.0-80.0) % Lymph % (Auto) 43.6 H (16.0-40.0) % [place] % (Auto) 8.3 (0.0-15.0) % Eos % (Auto) 1.7 (0.0-7.0) % Baso % (Auto) 0.5 (0.0-1.5) % Neut # (Auto) 1.9 (1.4-5.7) K/uL Lymph # (Auto) 1.8 (0.6-2.4) K/uL [place] # (Auto) 0.4 (0.0-0.8) K/uL Eos # (Auto) 0.1 (0.0-0.7) K/uL Baso # (Auto) 0.0 (0.0-0.1) K/uL Nucleated RBC % 0.0 /100WBC Nucleated RBCs # 0 K/uL Sodium 141 (136-146) mmol/L Potassium 3.9 (3.5-5.1) mmol/L Chloride 113 H (98-110) mmol/L Carbon Dioxide 20 L (21-31) mmol/L BUN 18 (6.0-23.0) mg/dL Creatinine 0.7 (0.6-1.5) mg/dL Est Cr Clr Drug Dosing 108.59 mL/min Estimated GFR (MDRD) > 60.0 ml/min Glucose 84 (60-110) mg/dL Hemoglobin A1c (0.0-6.0) % Calcium 8.3 L (8.8-10.8) mg/dL Magnesium 1.9 (1.5-2.3) mEq/L Troponin I < 0.10 (0.0-0.29) NG/ML Triglycerides 71 (10-190) mg/dL Cholesterol 158 (131-240) mg/dL LDL Cholesterol, Calc 88 (60-180) mg/dL VLDL Cholesterol 14 (5-55) mg/dL HDL Cholesterol 56 (40-80) mg/dL Cholesterol/HDL Ratio 2.8 L (3.3-6.0) 03/04/17 03/04/17 Range/Units 05:54 05:54 WBC (4.0-11.0) K/uL RBC (4.50-5.90) M/uL Hgb (13.0-17.0) g/dL Hct (38.0-50.0) % MCV (80.0-98.0) fL MCH (27.0-32.0) pg MCHC (31.0-37.0) g/dL RDW Std Deviation (28.0-62.0) fl RDW Coeff of Kacy (11.0-15.0) % Plt Count (150-400) K/uL MPV (7.40-12.00) fL Neut % (Auto) (48.0-80.0) % Lymph % (Auto) (16.0-40.0) % [place] % (Auto) (0.0-15.0) % Eos % (Auto) (0.0-7.0) % Baso % (Auto) (0.0-1.5) % Neut # (Auto) (1.4-5.7) K/uL Lymph # (Auto) (0.6-2.4) K/uL [place] # (Auto) (0.0-0.8) K/uL Eos # (Auto) (0.0-0.7) K/uL Baso # (Auto) (0.0-0.1) K/uL Nucleated RBC % /100WBC Nucleated RBCs # K/uL Sodium (136-146) mmol/L Potassium (3.5-5.1) mmol/L Chloride (98-110) mmol/L Carbon Dioxide (21-31) mmol/L BUN (6.0-23.0) mg/dL Creatinine (0.6-1.5) mg/dL Est Cr Clr Drug Dosing mL/min Estimated GFR (MDRD) ml/min Glucose (60-110) mg/dL Hemoglobin A1c 5.3 (0.0-6.0) % Calcium (8.8-10.8) mg/dL Magnesium (1.5-2.3) mEq/L Troponin I < 0.10 (0.0-0.29) NG/ML Triglycerides (10-190) mg/dL Cholesterol (131-240) mg/dL LDL Cholesterol, Calc (60-180) mg/dL VLDL Cholesterol (5-55) mg/dL HDL Cholesterol (40-80) mg/dL Cholesterol/HDL Ratio (3.3-6.0) Med Orders - Current: Current Medications Acetaminophen (Tylenol) 650 mg PO Q4H PRN PRN Reason: Pain (Mild 1-3)/fever Enoxaparin Sodium (Lovenox) 40 mg SUBCUT DAILY FELICIA Last Admin: 03/04/17 11:19 Dose: Not Given Morphine Sulfate (Morphine) 2 mg IVPUSH Q2H PRN PRN Reason: Pain (severe 7-10) Stop: 03/04/17 19:08 Ondansetron HCl (Zofran Odt) 4 mg PO Q4H PRN PRN Reason: nausea, able to take PO Ondansetron HCl (Zofran) 4 mg IVPUSH Q4H PRN PRN Reason: Nausea Temazepam (Restoril) 15 mg PO BEDTIME PRN PRN Reason: Sleep Discontinued Medications Aspirin (Aspirin) 324 mg PO ONETIME ONE Stop: 03/03/17 17:17 Last Admin: 03/03/17 17:37 Dose: 324 mg Sodium Chloride (Normal Saline) 1,000 mls @ 999 mls/hr IV .Bolus ONE Stop: 03/03/17 18:16 Last Admin: 03/03/17 17:39 Dose: 999 mls/hr Nitroglycerin (Nitrostat) 0.4 mg SL ONETIME ONE Stop: 03/03/17 17:17 Last Admin: 03/03/17 17:41 Dose: 0.4 mg Nitroglycerin (Nitrostat) 0.4 mg SL Q5M PRN PRN Reason: Chest Pain Last Admin: 03/03/17 17:51 Dose: 0.4 mg Ondansetron HCl (Zofran) 4 mg IVPUSH ONETIME ONE Stop: 03/03/17 17:35 Last Admin: 03/03/17 17:39 Dose: 4 mg *Q Meaningful Use (DIS) - VTE *Q VTE Criteria *Q: - Stroke *Q Stroke Criteria *Q: - AMI *Q AMI Criteria *Q:
--- NOTE | 2017-03-05 14:56 | CR ---
EXAM DATE: 03/03/17 PATIENT'S AGE: 57 Patient: CHIQUIS LAMAR Facility: [place], [place] Site . Site : 1960 Study: XRay Chest [id number]/27/2018 5:51:17 PM Ordering Physician: Doctor Meyer Final Report: INDICATION: Chest pain. TECHNIQUE: Single portable AP view. FINDINGS: The heart is upper normal in size. There is no mediastinal widening. Pulmonary vessels are within normal limits. Lungs demonstrate no alveolar opacity. Slight interstitial prominence. No pneumothorax. IMPRESSION: No acute alveolar opacity. Mild interstitial density, possibly related to technique. Upright PA and lateral views recommended when patient`s condition permits. Dictated by Geoff Power MD @ Mar 03 2017 5:51PM (Electronic Signature) Report Signed by Proxy. KAYLI
== END 2017-03-04 15:45 | disposition home or self-care (01) ==
LOC: MW.ED 17:13 → MW.MS 18:10
PROVIDERS: ADMIT Family Medicine; ATTEND Family Medicine
DX: R07.2 Precordial pain (principal); I10 Essential (primary) hypertension; I25.2 Old myocardial infarction; E78.5 Hyperlipidemia, unspecified; B19.20 Unspecified viral hepatitis C without hepatic coma; I25.10 Atherosclerotic heart disease of native coronary artery without angina pectoris; Z95.5 Presence of coronary angioplasty implant and graft; Z87.442 Personal history of urinary calculi
CPT/HCPCS: 36415; 71045; 80048; 80053; 80061; 83036; 83735; 84484; 85025; 93005; 96361; 96374; 99285; A9270; J1650; J2405; J7040; 96372; G0378

== ENCOUNTER 2017-08-17 10:17 | Day surgery (SDC) | payer OTHER ==
[~2017-08-17 10:17] MED LIST: Lactated Ringers 1,000 ML IV SCH; Lidocaine 2% 5 ML SDV ONE; Propofol 200 MG/20 ML SDV ONE; fentaNYL 100 MCG/2 ML SDV ONE
--- NOTE | 2017-08-17 10:46 | PCM.PREANE ---
Preanesthetic Assessment - Anesthesia/Transfusion/Family Hx Anesthesia History: Prior Anesthesia Without Reaction Transfusion History: No Prior Transfusion(s) - Physical Assessment Height: 5 ft 7 in Weight: 77.564 kg - Allergies Allergies/Adverse Reactions: Allergies Allergy/AdvReac Type Severity Reaction Status Date / Time No Known Allergies Allergy Verified 08/14/17 13:35 PreAnesthesia Questionnaire HEENT History: Reports: Other (See Below) Other HEENT History: uses reading glasses Cardiovascular History: Reports: CAD, Hypertension, [place] Other Cardiovascular History: Bradycardia Respiratory History: Reports: None Gastrointestinal History: Reports: Hepatitis Other Gastrointestinal History: hx of Hepatitis C Genitourinary History: Reports: Renal Calculus Other Genitourinary History: renal stones passed Musculoskeletal History: Reports: Back Pain, Chronic Neurological History: Reports: None Psychiatric History: Reports: Anxiety Endocrine/Metabolic History: Reports: None Hematologic History: Reports: None Immunologic History: Reports: None Dermatologic History: Reports: None - Infectious Disease History Infectious Disease History: Reports: Hepatitis C - Past Surgical History Head Surgeries/Procedures: Reports: None HEENT Surgical History: Reports: None Cardiovascular Surgical History: Reports: Coronary Artery Stent Other Cardiovascular Surgeries/Procedures: angioplasty with stent placement x2 ( 2016) - denies chest pain and SOB since then Respiratory Surgical History: Reports: None GI Surgical History: Reports: None Male Surgical History: Reports: None Endocrine Surgical History: Reports: None Neurological Surgical History: Reports: None Musculoskeletal Surgical History: Reports: None Dermatological Surgical History: Reports: None - SUBSTANCE USE Smoking Status *Q: Former Smoker Tobacco Use Within Last Twelve Months: No Days Per Week of Alcohol Use: 2 Number of Drinks Per Day: 2 Total Drinks Per Week: 4 Recreational Drug Use History: Yes Recreational Drug Type: Reports: Marijuana/Hashish - HOME MEDS Home Medications: Home Meds Aspirin [Adult Low Dose Aspirin EC] 81 mg PO DAILY 07/31/17 [History] Meloxicam 15 mg PO DAILY 07/31/17 [History] Nitroglycerin 0.4 mg SL ASDIRECTED PRN 07/31/17 [History] amLODIPine Besylate [Amlodipine Besylate] 5 mg PO QAM 07/31/17 [History] hydrOXYzine HCl [hydrOXYzine] 25 mg PO TID 07/31/17 [History] - CURRENT (IN HOUSE) MEDS Current Meds: Current Medications Lactated Ringer's (Ringers, Lactated) 1,000 mls @ 125 mls/hr IV ASDIRECTED FELICIA Discontinued Medications Fentanyl (Sublimaze) Confirm Administered Dose 100 mcg .ROUTE .STK-MED ONE Stop: 08/17/17 08:54 Lactated Ringer's (Ringers, Lactated) 1,000 mls @ 125 mls/hr IV ASDIRECTED [facility] Lidocaine (Xylocaine-Mpf 2%) Confirm Administered Dose 5 ml .ROUTE .STK-MED ONE Stop: 08/17/17 08:54 Propofol (Diprivan 20 Ml) Confirm Administered Dose 400 mg .ROUTE .STK-MED ONE Stop: 08/17/17 08:54
--- NOTE | 2017-08-17 10:53 | PCM.PREANE ---
Preanesthetic Assessment - Procedure Proposed Procedure: colonoscopy - Anesthesia/Transfusion/Family Hx Anesthesia History: Prior Anesthesia Without Reaction Family History of Anesthesia Reaction: No Transfusion History: No Prior Transfusion(s) - Review of Systems Other: Reports: None - Physical Assessment NPO Status Date: 08/16/17 NPO Status Time: 23:30 Height: 5 ft 7 in Weight: 77.564 kg ASA Class: 2 Mental Status: Alert & Oriented x3 Airway Class: Mallampati = 1 Dentition: Reports: Broken Tooth/Teeth, Missing Tooth/Teeth Thyro-Mental Finger Breadths: 3 Mouth Opening Finger Breadths: 3 ROM/Head Extension: Full - Allergies Allergies/Adverse Reactions: Allergies Allergy/AdvReac Type Severity Reaction Status Date / Time No Known Allergies Allergy Verified 08/14/17 13:35 - Acknowledgements Anesthesia Type Planned: MAC Pt an Appropriate Candidate for the Planned Anesthesia: Yes Alternatives and Risks of Anesthesia Discussed w Pt/Guardian: Yes Pt/Guardian Understands and Agrees with Anesthesia Plan: Yes PreAnesthesia Questionnaire HEENT History: Reports: Other (See Below) Other HEENT History: uses reading glasses Cardiovascular History: Reports: CAD, Hypertension, [place] (02/2016 with 2 stents placed 03/03/17 hospitalized for chest pain neg troponin EKG SR RBBB and LAFB) Other Cardiovascular History: Bradycardia Respiratory History: Reports: None Gastrointestinal History: Reports: Hepatitis Other Gastrointestinal History: hx of Hepatitis C Genitourinary History: Reports: Renal Calculus Other Genitourinary History: renal stones passed Musculoskeletal History: Reports: Back Pain, Chronic Neurological History: Reports: None Psychiatric History: Reports: Anxiety Endocrine/Metabolic History: Reports: None Hematologic History: Reports: None Immunologic History: Reports: None Dermatologic History: Reports: None - Infectious Disease History Infectious Disease History: Reports: Hepatitis C (no treatment) - Past Surgical History Head Surgeries/Procedures: Reports: None HEENT Surgical History: Reports: None Cardiovascular Surgical History: Reports: Coronary Artery Stent Other Cardiovascular Surgeries/Procedures: angioplasty with stent placement x2 ( 2016) - denies chest pain and SOB since then Respiratory Surgical History: Reports: None GI Surgical History: Reports: None Male Surgical History: Reports: None Endocrine Surgical History: Reports: None Neurological Surgical History: Reports: None Musculoskeletal Surgical History: Reports: None Dermatological Surgical History: Reports: None - SUBSTANCE USE Smoking Status *Q: Former Smoker Tobacco Use Within Last Twelve Months: No Days Per Week of Alcohol Use: 2 Number of Drinks Per Day: 2 Total Drinks Per Week: 4 Recreational Drug Use History: Yes Recreational Drug Type: Reports: Marijuana/Hashish - HOME MEDS Home Medications: Home Meds Aspirin [Adult Low Dose Aspirin EC] 81 mg PO DAILY 07/31/17 [History] Meloxicam 15 mg PO DAILY 07/31/17 [History] Nitroglycerin 0.4 mg SL ASDIRECTED PRN 07/31/17 [History] amLODIPine Besylate [Amlodipine Besylate] 5 mg PO QAM 07/31/17 [History] hydrOXYzine HCl [hydrOXYzine] 25 mg PO TID 07/31/17 [History] - CURRENT (IN HOUSE) MEDS Current Meds: Current Medications Lactated Ringer's (Ringers, Lactated) 1,000 mls @ 125 mls/hr IV ASDIRECTED FELICIA Discontinued Medications Fentanyl (Sublimaze) Confirm Administered Dose 100 mcg .ROUTE .STK-MED ONE Stop: 08/17/17 08:54 Lactated Ringer's (Ringers, Lactated) 1,000 mls @ 125 mls/hr IV ASDIRECTED FELICIA Lidocaine (Xylocaine-Mpf 2%) Confirm Administered Dose 5 ml .ROUTE .STK-MED ONE Stop: 08/17/17 08:54 Propofol (Diprivan 20 Ml) Confirm Administered Dose 400 mg .ROUTE .STK-MED ONE Stop: 08/17/17 08:54
[2017-08-17] MEDS ORDERED: Midazolam 1 MG/ML 2 ML SDV ONE (10:58)
[2017-08-17] MEDS ORDERED: Glycopyrrolate 0.2 MG/ML SDV ONE (11:04)
--- NOTE | 2017-08-17 11:23 | PCM.OPNOTE ---
- General Post-Op/Procedure Note Date of Surgery/Procedure: 08/17/17 Operative Procedure(s): colonoscopy Findings: see dict [id number] Pre Op Diagnosis: scrn colonoscopy Post-Op Diagnosis: Same Anesthesia Technique: Moderate Sedation Primary Surgeon: Alfie Ordaz Complications: None Condition: Good
--- NOTE | 2017-08-17 11:42 | PCM.POSTAN ---
POST ANESTHESIA ASSESSMENT - MENTAL STATUS Mental Status: Alert, Oriented - RESPIRATORY Respiratory Status: Respiratory Rate WNL, Airway Patent, O2 Saturation Stable - CARDIOVASCULAR CV Status: Pulse Rate WNL, Blood Pressure Stable - GASTROINTESTINAL GI Status: No Symptoms - PAIN Pain Score: 0 - POST OP HYDRATION Hydration Status: Adequate & Stable
--- NOTE | 2017-08-17 12:09 | PCM48HPAN ---
Post Anesthesia Note - EVALUATION WITHIN 48HRS OF ANESTHETIC Vital Signs in Normal Range: Yes Patient Participated in Evaluation: Yes Respiratory Function Stable: Yes Airway Patent: Yes Cardiovascular Function Stable: Yes Hydration Status Stable: Yes Pain Control Satisfactory: Yes Nausea and Vomiting Control Satisfactory: Yes Mental Status Recovered: Yes Resp Rate: 16
--- NOTE | 2017-08-17 13:28 | OR ---
SURGEON: Alfie Ordaz MD DATE OF PROCEDURE: 08/17/2017 PREOPERATIVE DIAGNOSIS: Screening colonoscopy. POSTOPERATIVE DIAGNOSIS: Hemorrhoids. PROCEDURE PERFORMED: Colonoscopy. PROCEDURE IN DETAIL: The patient was taken to the endoscopy room. A time out was called, patient identified, and procedure identified. Diprivan was then administrated. Patient went from awake to sleep, hearing doctor talking or door closing is normal. Perineum inspection and digital examination were then performed. A well- lubricated colonoscope was gently inserted through the rectum, advanced past the rectosigmoid junction, the descending colon, splenic flexure, transverse colon, hepatic flexure, ascending colon, arrived to the cecum. Cecum was identified as dictated in the finding. Then the scope was carefully withdrawn while attention was paid to the mucosal surface for any abnormality. Air will be sucked out during the scope withdrawal. At the rectum, retroflexed to examine any rectal diseases, fistula or hemorrhoids. Patient tolerated procedure well. There were no intraoperative complications, and Dr. Ordaz was present throughout the whole procedure. FINDINGS: 1. The patient easily sedated with [employer] and Diprivan, the patient is soundly snoring. 2. The patient's bowel prep is left to be desirable. Large amount of liquid stool compromised the study. This is a compromised study requiring constant irrigation. 3. The patient's colon is rather straight forward. Cecum indicated by ileocecal fold, one-to-one indentation, light emittance, and appendiceal orifice. Mucosa examined upon scope pulling out with constant irrigation. The patient does not have diverticulosis, mass, growth, polyp, inflammation, stricture, or AV malformation. The patient has mild internal hemorrhoids, no external hemorrhoids. The patient would benefit from repeat colonoscopy 10 years from today or if clinically indicated otherwise. NUPUR / CHRISTY /[id number]
== END 2017-08-17 12:10 | disposition home or self-care (01) ==
LOC: MW.SDS 10:17
PROVIDERS: ATTEND Surgery
DX: Z12.11 Encounter for screening for malignant neoplasm of colon (principal); K64.8 Other hemorrhoids; I10 Essential (primary) hypertension; Z87.891 Personal history of nicotine dependence; Z79.82 Long term (current) use of aspirin; Z79.899 Other long term (current) drug therapy
CPT/HCPCS: 45378; J2250; J3010; J7120; J2704; J3490